=== PATIENT | male | born 2000 | race Two or more races ===

== ENCOUNTER 2021-07-30 17:32 | Emergency (ER) | payer OTHER ==
[~2021-07-30] VITALS: Ht 175.3 cm; Wt 81.6 kg
[2021-07-30 20:17] VITALS: BP 130/83
== END 2021-07-30 20:35 | disposition home or self-care (01) ==
LOC: ER 17:32
DX: B00.1 Herpesviral vesicular dermatitis (principal); B00.9 Herpesviral infection, unspecified

== ENCOUNTER 2021-11-08 06:46 | Emergency (ER) | payer MEDICAID ==
[2021-11-08] MEDS ORDERED: methylPREDNISolone SOD SUCC 125 MG/2 ML VL IM ONE (07:00)
[2021-11-08] MEDS ORDERED: EPINEPHrine HCL 1 MG/1 ML AMP SC ONE (07:00)
[2021-11-08 07:05] VITALS: BP 131/82
== END 2021-11-08 07:38 | disposition home or self-care (01) ==
LOC: ER 06:46
DX: T78.40XA Allergy, unspecified, initial encounter (principal); X58.XXXA Exposure to other specified factors, initial encounter
CPT/HCPCS: 96372; 99284; J0171; J2930